=== PATIENT | male | born 1955 | race Caucasian/White ===

== ENCOUNTER 2019-09-20 23:17 | Emergency (ER) | payer OTHER, MEDICARE ==
[~2019-09-20] VITALS: Ht 185.4 cm; Wt 113.6 kg
--- NOTE | 2019-09-21 00:07 | NUR ---
Patient to xray.
[2019-09-21] MEDS ORDERED: morphine 4 MG/ML inj SYRINge IM ONE (01:05)
[2019-09-21] MEDS ORDERED: ondansetron 4mg rapidly disintigrating tab PO ONE (01:05)
[2019-09-21 01:33] VITALS: BP 126/63
== END 2019-09-21 01:20 | disposition home or self-care (01) ==
LOC: ER 23:18
DX: M25.531 Pain in right wrist (principal); M25.521 Pain in right elbow; M25.561 Pain in right knee; M54.5 Low back pain; M54.6 Pain in thoracic spine; M79.641 Pain in right hand; G43.909 Migraine, unspecified, not intractable, without status migrainosus; G89.29 Other chronic pain; E11.42 Type 2 diabetes mellitus with diabetic polyneuropathy; Z88.5 Allergy status to narcotic agent; Z88.8 Allergy status to other drugs, medicaments and biological substances; W18.39XA Other fall on same level, initial encounter; Y93.89 Activity, other specified; Y92.89 Other specified places as the place of occurrence of the external cause; Y99.8 Other external cause status
CPT/HCPCS: 71046; 73030; 73080; 73110; 73130; 73564; 96372; 99284; J2270

== ENCOUNTER 2019-09-28 16:35 | Emergency (ER) | payer MEDICARE, OTHER ==
[~2019-09-28] VITALS: Ht 185.4 cm; Wt 113.6 kg
[2019-09-28] MEDS ORDERED: proCHLORperazine 10 MG/2 ml inj IV ONE (20:20)
[2019-09-28] MEDS ORDERED: diphenhydrAMINE 50 mg/ml inj IV ONE (20:20)
== END 2019-09-28 21:16 | disposition home or self-care (01) ==
LOC: ER 16:36
DX: G43.909 Migraine, unspecified, not intractable, without status migrainosus (principal); E11.42 Type 2 diabetes mellitus with diabetic polyneuropathy; G89.29 Other chronic pain; Z88.5 Allergy status to narcotic agent; Z88.8 Allergy status to other drugs, medicaments and biological substances
CPT/HCPCS: 96372; 99284; J0780; J1200

== ENCOUNTER 2019-10-19 12:54 | Emergency (ER) | payer OTHER ==
[~2019-10-19] VITALS: Ht 185.4 cm; Wt 113.6 kg
[2019-10-19 13:40] LABS: BASOPHILS % (AUTO) 0.2 % (0-1); EOSINOPHILS % (AUTO) 0.5 % (0-6); HEMATOCRIT 31.5 % (42.0-52.0); HEMOGLOBIN 10.8 g/dl (14.0-17.9); LYMPHOCYTES # (AUTO) 0.6 X10'3 (1.1-4.8); LYMPHOCYTES % (AUTO) 15.9 % (21-51); MEAN CORPUSCULAR HEMOGLOBIN 29.4 PG (27.0-31.0); MEAN CORPUSCULAR HGB CONC 34.4 g/dL (33.0-36.5); MEAN CORPUSCULAR VOLUME 85.5 FL (78-98); MEAN PLATELET VOLUME 7.7 FL (7.4-10.4); MONOCYTES # (AUTO) 0.3 X10'3 (0-0.9); MONOCYTES % (AUTO) 6.9 % (2-12); NEUTROPHILS # (AUTO) 3.1 X10'3 (1.8-7.7); NEUTROPHILS % (AUTO) 76.5 % (42-75); PLATELET COUNT 74 X10'3 (140-440); RED BLOOD COUNT 3.69 X10'6 (4.70-6.10); RED CELL DISTRIBUTION WIDTH 15.2 % (11.5-14.5); WHITE BLOOD COUNT 4.1 X10'3 (4.5-11.0)
[2019-10-19 13:59] LABS: ALANINE AMINOTRANSFERASE 27 U/L (12-78); ALBUMIN 3.1 G/DL (3.4-5.0); ALBUMIN/GLOBULIN RATIO 0.7 (1.1-1.5); ALKALINE PHOSPHATASE 92 IU/L (46-116); ANION GAP 8 (8-16); ASPARTATE AMINO TRANSFERASE 34 U/L (10-37); BILIRUBIN,TOTAL 0.7 MG/DL (0.1-1.0); BLOOD UREA NITROGEN 9 MG/DL (7-18); BUN/CREATININE RATIO 7.7 (5.4-32.0); CALCIUM 8.4 MG/DL (8.5-10.1); CHLORIDE 105 MMOL/L (99-107); CREATININE 1.17 MG/DL (0.60-1.10); GLUCOSE 283 MG/DL (70-104); POTASSIUM 4.3 MMOL/L (3.5-5.1); SODIUM 138 MMOL/L (135-145); TOTAL PROTEIN 7.3 G/DL (6.4-8.2); eGFR 63 ML/MIN
[2019-10-19 14:01] VITALS: BP 166/109
[2019-10-19 14:14] LABS: D-DIMER 0.86 MG/L FEU (0-0.50); PARTIAL THROMBOPLASTIN TIME 29 SECONDS (22-32)
[2019-10-19] MEDS ORDERED: normal saline 1000ml 1,000 ML IV ONE (14:25)
[2019-10-19] MEDS ORDERED: iohexol 350MG/ML 100ml bottle IV ONE (14:56)
[2019-10-19] MEDS ORDERED: PRED10TA23 PO (15:16)
[2019-10-19] MEDS ORDERED: INSU100V46 SUBCUT (15:16)
[2019-10-19] MEDS ORDERED: FERR-39 PO (15:16)
[2019-10-19] MEDS ORDERED: SUMA6CAR2 SUBCUT (15:16)
[2019-10-19] MEDS ORDERED: ONDA4TAB6 PO (15:16)
[2019-10-19] MEDS ORDERED: ALBU8.5H8 INH (15:16)
[2019-10-19] MEDS ORDERED: DOXY-1 PO (15:16)
[2019-10-19] MEDS ORDERED: QUET-1 PO (15:16)
[2019-10-19] MEDS ORDERED: MESSAGE TO NURSING PO ONE (15:35)
[2019-10-19] MEDS ORDERED: ALB0.5UD IH (16:34)
[2019-10-19] MEDS ORDERED: NEBU-208 (16:34)
== END 2019-10-19 17:03 | disposition home or self-care (01) ==
LOC: ER 12:54
DX: R06.02 Shortness of breath (principal); B34.9 Viral infection, unspecified; R05 Cough; E11.42 Type 2 diabetes mellitus with diabetic polyneuropathy; G89.29 Other chronic pain; Z88.5 Allergy status to narcotic agent; Z88.8 Allergy status to other drugs, medicaments and biological substances; Z79.4 Long term (current) use of insulin; Z79.899 Other long term (current) drug therapy
CPT/HCPCS: 36415; 71045; 71275; 80053; 82140; 83605; 83880; 84145; 84484; 85025; 85379; 85610; 85730; 93005; 99285; J7030; Q9967

== ENCOUNTER 2020-02-24 13:22 | Inpatient (IN) | payer OTHER ==
[2020-02-24] VITALS (14 sets, daily range): BP systolic 116–159; BP diastolic 47–96
[~2020-02-24] VITALS: Ht 185.4 cm; Wt 105.5 kg
[~2020-02-24 13:22] MED LIST: ALBU8.5H8 INH; ASPI-1071 PO; CLOP75TA35 PO; DOXY-1 PO; FERR-39 PO; INSU100V46 SUBCUT; LACT10SO32 PO; LEVO75TA PO; MOME0.242 INH; NEBU-208; ONDA4TAB6 PO; PREG100C PO; QUET-1 PO; SUMA6CAR2 SUBCUT; TIOT18CA3 IH; TIZA4CAP PO
[2020-02-24] MEDS ORDERED: pantoprazole IV 80 MG in normal saline 100ml IV soln 100 ML IV ONE (13:55)
[2020-02-24] MEDS ORDERED: normal saline 1000ML IV soln IV ONE (13:55)
[2020-02-24] MEDS ORDERED: pantoprazole 40 MG vial IV ONE ×2 (14:00→14:10)
[2020-02-24 14:16] LABS: BASOPHILS % (AUTO) 0.2 % (0-1); EOSINOPHILS # (AUTO) 0.1 X10'3 (0-0.9); EOSINOPHILS % (AUTO) 1.7 % (0-6); LYMPHOCYTES # (AUTO) 0.6 X10'3 (1.1-4.8); LYMPHOCYTES % (AUTO) 17.7 % (21-51); MEAN CORPUSCULAR HEMOGLOBIN 30.9 PG (27.0-31.0); MEAN CORPUSCULAR HGB CONC 32.9 g/dL (33.0-36.5); MEAN PLATELET VOLUME 8.8 FL (7.4-10.4); MONOCYTES # (AUTO) 0.3 X10'3 (0-0.9); MONOCYTES % (AUTO) 10.1 % (2-12); NEUTROPHILS # (AUTO) 2.3 X10'3 (1.8-7.7); NEUTROPHILS % (AUTO) 70.3 % (42-75); PLATELET COUNT 74 X10'3 (140-440); RED BLOOD COUNT 2.04 X10'6 (4.70-6.10); RED CELL DISTRIBUTION WIDTH 18.7 % (11.5-14.5); WHITE BLOOD COUNT 3.2 X10'3 (4.5-11.0)
[2020-02-24 14:18] LABS: HEMATOCRIT 19.2 % (42.0-52.0); HEMOGLOBIN 6.3 g/dl (14.0-17.9)
[2020-02-24 14:30] LABS: ALANINE AMINOTRANSFERASE 27 U/L (12-78); ALBUMIN/GLOBULIN RATIO 0.9 (1.1-1.5); ALKALINE PHOSPHATASE 71 IU/L (46-116); ANION GAP 12 (8-16); ASPARTATE AMINO TRANSFERASE 29 U/L (10-37); BILIRUBIN,TOTAL 0.6 MG/DL (0.1-1.0); BLOOD UREA NITROGEN 15 MG/DL (7-18); BUN/CREATININE RATIO 10.6 (5.4-32.0); CALCIUM 8.3 MG/DL (8.5-10.1); CHLORIDE 104 MMOL/L (99-107); CREATININE 1.42 MG/DL (0.60-1.10); GLUCOSE 214 MG/DL (70-104); POTASSIUM 3.8 MMOL/L (3.5-5.1); SODIUM 136 MMOL/L (135-145); TOTAL CARBON DIOXIDE 20.2 MMOL/L (24-32); TOTAL PROTEIN 6.3 G/DL (6.4-8.2); eGFR 51 ML/MIN
[2020-02-24 14:50] LABS: ANISOCYTOSIS 2+; PLATELET ESTIMATE DECREASED
[2020-02-24 14:51] LABS: POLYCHROMASIA FEW
[2020-02-24] MEDS: pantoprazole 40MG/NS 100ML BAG 100 ML IV SCH ×2 (15:20→21:31)
[2020-02-24 15:57] LABS: OCCULT BLOOD STOOL POSITIVE (Neg)
--- NOTE | 2020-02-24 16:17 | NUR ---
NO REACTION NOTED Q15 MIN VITALS CHECKED NAD DOOCUMENT ,PT DENIES ANY DISCOMFORT OR DISTRESS AT THIS TIME .
[2020-02-24] MEDS ORDERED: LEVO75TA7 PO (17:01)
[2020-02-24] MEDS ORDERED: TIOT4MIS3 IH (17:01)
[2020-02-24] MEDS ORDERED: LISI2.5T2 PO (17:01)
[2020-02-24] MEDS ORDERED: LANTUS SQ (17:01)
[2020-02-24] MEDS ORDERED: ASPI-611 PO (17:01)
[2020-02-24] MEDS ORDERED: ISOS30TA6 PO (17:01)
[2020-02-24] MEDS ORDERED: CLOP75TA8 PO (17:01)
[2020-02-24] MEDS ORDERED: FERR325T28 PO (17:01)
[2020-02-24] MEDS ORDERED: SUMA5SPR2 NS (17:01)
[2020-02-24] MEDS ORDERED: INSU100C4 SQ (17:01)
[2020-02-24] MEDS ORDERED: HYDR-4383 PO (17:01)
[2020-02-24] MEDS ORDERED: METF-436 PO (17:01)
[2020-02-24] MEDS ORDERED: NITR0.4T51 SL (17:01)
[2020-02-24] MEDS ORDERED: RIFA550T PO (17:01)
[2020-02-24] MEDS ORDERED: CARV3.122 PO (17:01)
[2020-02-24] MEDS ORDERED: CETI10TA15 PO (17:01)
[2020-02-24] MEDS ORDERED: EMPA10TA PO (17:01)
[2020-02-24] MEDS ORDERED: POLY119P2 PO (17:01)
[2020-02-24] MEDS ORDERED: PANT-47 PO (17:01)
[2020-02-24] MEDS ORDERED: POTA20TA19 PO (17:01)
[2020-02-24] MEDS ORDERED: NEOM28.37 TP (17:01)
[2020-02-24] MEDS ORDERED: ATOR-2 PO (17:01)
[2020-02-24] MEDS ORDERED: acetaminophen 325mg tablet PO PRN (17:05)
[2020-02-24] MEDS ORDERED: magnesium 4gm in 100ml NS 100 ML IV PRN (17:05)
[2020-02-24] MEDS ORDERED: ondansetron/PF 4mg/2ml inj IV PRN (17:05)
[2020-02-24] MEDS ORDERED: magnesium Cl slow-release 64mg tablet PO PRN (17:05)
[2020-02-24] MEDS ORDERED: magnesium 2GM in 50ml NS 50 ML IV PRN (17:05)
[2020-02-24] MEDS ORDERED: potassium Cl 20 mEq SR tablet PO PRN ×2 (17:05)
[2020-02-24] MEDS ORDERED: potassium CL 10mEq/100ml bag 100 ML IV PRN ×2 (17:05)
[2020-02-24] MEDS ORDERED: tizanidine 4mg tablet PO PRN (18:15)
[2020-02-24] MEDS ORDERED: neomy sulf/bacitrac zn/polymixin b oint 14.2 gm tube TP PRN (18:15)
[2020-02-24] MEDS ORDERED: nitroGLYCERIN 0.4mg SUBLingual tab SL PRN (18:15)
[2020-02-24] MEDS ORDERED: polyethylene glycol 3350 17gm powd pack PO PRN (18:15)
[2020-02-24] MEDS ORDERED: albuterol 2.5 MG/3 ML nebule NEB PRN (18:40)
[2020-02-24] MEDS ORDERED: ipratropium 0.5 MG/2.5ML nebule IH PRN (18:45)
[2020-02-24 19:37] LABS: CLARITY,URINE CLEAR (Clear); COLOR,URINE YELLOW (Yellow); GLUCOSE, URINE >=1000 mg/dl (Neg); KETONES,URINE NEGATIVE (Neg); LEUKOCYTE ESTERASE ,URINE NEGATIVE (Neg); NITRITES, URINE NEGATIVE (Neg); OCCULT BLOOD,URINE NEGATIVE (Neg); PROTEIN,URINE NEGATIVE (Neg); UROBILINOGEN,URINE 0.2 E.U/dL (0.2-1.0)
[2020-02-24 19:38] LABS: UA COLLECTION TYPE NON-SPECIFIED
--- NOTE | 2020-02-24 19:40 | NUR ---
pt sitting up stated that he is feeling lot better than before ,pt working on his dinner tray .receving bld as per md orders.
[2020-02-24 19:41] LABS: RBC,URINE NONE SEEN /HPF (0-2); WBC,URINE NONE SEEN /HPF (0-4)
[2020-02-24 19:42] LABS: BACTERIA,URINE NONE SEEN /HPF (Neg); SQUAMOUS EPITHELIAL CELL,UR FEW /LPF (FEW)
--- NOTE | 2020-02-24 19:53 | NUR ---
Patient in room ED [id number]. I have received report from Terese BARON and had the opportunity to ask questions and awaiting arrival of patient to the PCU unit.
[2020-02-24] MEDS: K and/or MAG REPLACEMENT MC SCH (20:00)
[2020-02-24] MEDS ORDERED: SUMAtriptan 5 mg Nasal Spray BOTHNARES PRN (20:00)
--- NOTE | 2020-02-24 20:05 | NUR ---
Patient arrived to the floor from the ED at this time. Blood currently transfusing. No complications noted. Vitals stable. He is on room air. He is alert and oriented and able to make his needs known. He was able to ambulate from the gurney to the bed independently without issues. All safety precautions in place and call light in reach. Will continue to monitor.
[2020-02-24] MEDS: normal saline 1000ml 1,000 ML IV SCH (21:30)
[2020-02-24] MEDS: carVEDilol 3.125mg tablet PO SCH (21:31)
[2020-02-24] MEDS: rifaximin 550mg tablet PO SCH (21:31)
[2020-02-24] MEDS: insulin glargine (Lantus) pen - multi-dose SQ SCH (21:43)
[2020-02-24 22:58] LABS: HEMATOCRIT 23.9 % (42.0-52.0); MEAN CORPUSCULAR HEMOGLOBIN 30.6 PG (27.0-31.0); MEAN CORPUSCULAR HGB CONC 33.4 g/dL (33.0-36.5); MEAN CORPUSCULAR VOLUME 91.6 FL (78-98); MEAN PLATELET VOLUME 8.8 FL (7.4-10.4); PLATELET COUNT 61 X10'3 (140-440); RED BLOOD COUNT 2.61 X10'6 (4.70-6.10); RED CELL DISTRIBUTION WIDTH 18.3 % (11.5-14.5); WHITE BLOOD COUNT 3.1 X10'3 (4.5-11.0)
[2020-02-24] MEDS: budesonide 0.5mg/2ml UD nebule IH SCH (23:23)
[2020-02-25] VITALS (8 sets, daily range): BP systolic 97–121; BP diastolic 44–69
--- NOTE | 2020-02-25 02:12 | NUR ---
Hydrocodone taken off of patient allergy list because both the patient and his confirmed that he is not allergic to it and routinely takes it at home without issues.
[2020-02-25] MEDS: pantoprazole 40MG/NS 100ML BAG 100 ML IV SCH ×5 (02:18→21:00)
[2020-02-25] MEDS: HYDROcodone/acetaminophen 5mg/325mg tablet PO PRN ×2 (02:19→12:42)
[2020-02-25] MEDS: normal saline 1000ml 1,000 ML IV SCH ×3 (05:52→23:41)
[2020-02-25 05:59] LABS: ALBUMIN 2.7 G/DL (3.4-5.0); ANION GAP 8 (8-16); BLOOD UREA NITROGEN 11 MG/DL (7-18); BUN/CREATININE RATIO 10.9 (5.4-32.0); CALCIUM 7.5 MG/DL (8.5-10.1); CHLORIDE 108 MMOL/L (99-107); CREATININE 1.01 MG/DL (0.60-1.10); GLUCOSE 101 MG/DL (70-104); MAGNESIUM 1.8 MG/DL (1.5-2.4); SODIUM 139 MMOL/L (135-145); eGFR 75 ML/MIN
[2020-02-25 06:25] LABS: HEMOGLOBIN A1C 5.6 % (4.5-6.2)
--- NOTE | 2020-02-25 06:31 | NUR ---
Problems reprioritized. Patient report given, questions answered & plan of care reviewed with Tessy BARON.
[2020-02-25 07:14] LABS: BASOPHILS % (AUTO) 0.3 % (0-1); EOSINOPHILS # (AUTO) 0.1 X10'3 (0-0.9); EOSINOPHILS % (AUTO) 4.5 % (0-6); HEMATOCRIT 22.9 % (42.0-52.0); HEMOGLOBIN 7.7 g/dl (14.0-17.9); LYMPHOCYTES # (AUTO) 0.6 X10'3 (1.1-4.8); LYMPHOCYTES % (AUTO) 23.1 % (21-51); MEAN CORPUSCULAR HGB CONC 33.8 g/dL (33.0-36.5); MEAN CORPUSCULAR VOLUME 91.5 FL (78-98); MEAN PLATELET VOLUME 8.7 FL (7.4-10.4); MONOCYTES # (AUTO) 0.3 X10'3 (0-0.9); MONOCYTES % (AUTO) 11.5 % (2-12); NEUTROPHILS # (AUTO) 1.5 X10'3 (1.8-7.7); NEUTROPHILS % (AUTO) 60.6 % (42-75); PLATELET COUNT 60 X10'3 (140-440); RED CELL DISTRIBUTION WIDTH 18.5 % (11.5-14.5); WHITE BLOOD COUNT 2.5 X10'3 (4.5-11.0)
[2020-02-25] MEDS: atorvastatin 20mg tablet PO SCH (07:36)
[2020-02-25] MEDS: potassium Cl 20 mEq SR tablet PO SCH (07:39)
[2020-02-25] MEDS: levoTHYROXINE 75mcg tablet PO SCH (07:39)
[2020-02-25] MEDS: carVEDilol 3.125mg tablet PO SCH ×2 (07:39→20:34)
[2020-02-25 07:40] LABS: ANISOCYTOSIS 2+; PLATELET ESTIMATE DECREASED; TOTAL CELLS COUNTED 100
[2020-02-25] MEDS: aspirin 81mg tablet.DR PO SCH (07:40)
[2020-02-25] MEDS: isosorbide mononitrate 30mg tab.SR.24H PO SCH (07:40)
[2020-02-25] MEDS: cetirizine 10mg tablet PO SCH (07:40)
[2020-02-25 07:41] LABS: POLYCHROMASIA FEW
[2020-02-25] MEDS: rifaximin 550mg tablet PO SCH ×2 (07:42→20:33)
[2020-02-25] MEDS: lisinopril 2.5mg tablet PO SCH (07:44)
[2020-02-25] MEDS: insulin Lispro (HumaLOG) vial - multi-dose SQ SCH ×3 (07:59→17:00)
[2020-02-25] MEDS ORDERED: EMPAGLIFLOZIN 12.5 MG PO SCH (08:00)
[2020-02-25] MEDS: K and/or MAG REPLACEMENT MC SCH ×2 (08:00→20:00)
[2020-02-25] MEDS: budesonide 0.5mg/2ml UD nebule IH SCH ×2 (10:33→20:07)
[2020-02-25] MEDS ORDERED: glucagon, human recombinant 1mg kit SUBCUT PRN ×2 (12:25→20:30)
[2020-02-25] MEDS ORDERED: dextrose ORAL solution 15 GM/59 ML bottle PO PRN ×4 (12:25→20:30)
[2020-02-25] MEDS ORDERED: dextrose 50%-water 50ml dispensing syringe IV PRN ×4 (12:25→20:30)
[2020-02-25] MEDS ORDERED: fentaNYL/PF 50MCG/1 ML 2ML syringe ONE (14:53)
[2020-02-25] MEDS ORDERED: MIDAZolam 5mg/5ml vial ONE (14:53)
[2020-02-25] MEDS ORDERED: LIDOcaine Viscous 15ml cup ONE (14:53)
--- NOTE | 2020-02-25 16:08 | NUR ---
Malnutrition Consult: Pt admit w/ profound anemia, blood in stool, hx ROSALES and cirrhosis per MD note. Pt has no significant weakness noted, no edema/wounds, no accurate wt hx, and well-developed/well-nourished per EMR. At this time pt does not meet minimum malnutrition criteria. Addendum: 02/25/20 at [address] Amended: Links added.
[2020-02-25] MEDS ORDERED: fluconazole 100mg tablet PO ONE (17:15)
--- NOTE | 2020-02-25 18:00 | NUR ---
Patient in room PCU 3015. I have received report from Juan BARON and had the opportunity to ask questions and assume patient care.
[2020-02-25] MEDS ORDERED: insulin Lispro (HumaLOG) vial - multi-dose SQ SCH (20:30)
[2020-02-25] MEDS ORDERED: MESSAGE TO PHARMACY PO ONE (20:30)
[2020-02-25] MEDS: insulin glargine (Lantus) pen - multi-dose SQ SCH (20:53)
[2020-02-25] MEDS ORDERED: insulin glargine (Lantus) pen - multi-dose SQ SCH (21:00)
[2020-02-26] MEDS: pantoprazole 40MG/NS 100ML BAG 100 ML IV SCH ×2 (01:56→09:31)
[2020-02-26 02:00] VITALS: BP 138/67
[2020-02-26 06:00] VITALS: BP 130/76
[2020-02-26 06:15] LABS: BASOPHILS % (AUTO) 0.3 % (0-1); EOSINOPHILS # (AUTO) 0.1 X10'3 (0-0.9); HEMATOCRIT 23.6 % (42.0-52.0); HEMOGLOBIN 7.9 g/dl (14.0-17.9); LYMPHOCYTES # (AUTO) 0.4 X10'3 (1.1-4.8); LYMPHOCYTES % (AUTO) 9.2 % (21-51); MEAN CORPUSCULAR HEMOGLOBIN 30.7 PG (27.0-31.0); MEAN CORPUSCULAR HGB CONC 33.6 g/dL (33.0-36.5); MEAN CORPUSCULAR VOLUME 91.6 FL (78-98); MEAN PLATELET VOLUME 8.7 FL (7.4-10.4); MONOCYTES # (AUTO) 0.3 X10'3 (0-0.9); MONOCYTES % (AUTO) 8.6 % (2-12); NEUTROPHILS # (AUTO) 3.2 X10'3 (1.8-7.7); NEUTROPHILS % (AUTO) 78.9 % (42-75); PLATELET COUNT 68 X10'3 (140-440); RED BLOOD COUNT 2.57 X10'6 (4.70-6.10); RED CELL DISTRIBUTION WIDTH 18.4 % (11.5-14.5); WHITE BLOOD COUNT 4.1 X10'3 (4.5-11.0)
[2020-02-26 06:28] LABS: ALBUMIN 2.7 G/DL (3.4-5.0); ANION GAP 7 (8-16); BLOOD UREA NITROGEN 11 MG/DL (7-18); CALCIUM 8.6 MG/DL (8.5-10.1); CHLORIDE 108 MMOL/L (99-107); CREATININE 1.22 MG/DL (0.60-1.10); GLUCOSE 180 MG/DL (70-104); MAGNESIUM 1.9 MG/DL (1.5-2.4); POTASSIUM 4.3 MMOL/L (3.5-5.1); SODIUM 139 MMOL/L (135-145); TOTAL CARBON DIOXIDE 24.1 MMOL/L (24-32); eGFR 60 ML/MIN
--- NOTE | 2020-02-26 06:28 | NUR ---
Problems reprioritized. Patient report given, questions answered & plan of care reviewed with Roseline BARON.
--- NOTE | 2020-02-26 06:47 | NUR ---
Patient in room PCU 3018. I have received report from LORAINE Abernathy and had the opportunity to ask questions and assume patient care.
[2020-02-26] MEDS: budesonide 0.5mg/2ml UD nebule IH SCH (06:56)
[2020-02-26] MEDS: K and/or MAG REPLACEMENT MC SCH (07:14)
[2020-02-26] MEDS: isosorbide mononitrate 30mg tab.SR.24H PO SCH (07:21)
[2020-02-26] MEDS: aspirin 81mg tablet.DR PO SCH (07:21)
[2020-02-26] MEDS: atorvastatin 20mg tablet PO SCH (07:22)
[2020-02-26] MEDS: potassium Cl 20 mEq SR tablet PO SCH (07:22)
[2020-02-26] MEDS: lisinopril 2.5mg tablet PO SCH (07:22)
[2020-02-26] MEDS: carVEDilol 3.125mg tablet PO SCH (07:23)
[2020-02-26] MEDS: levoTHYROXINE 75mcg tablet PO SCH (07:23)
[2020-02-26] MEDS: cetirizine 10mg tablet PO SCH (07:23)
[2020-02-26] MEDS: rifaximin 550mg tablet PO SCH (07:23)
[2020-02-26] MEDS: insulin Lispro (HumaLOG) vial - multi-dose SQ SCH ×2 (07:33→12:07)
[2020-02-26] MEDS ORDERED: EMPAGLIFLOZIN 25 MG PO SCH (08:00)
[2020-02-26] MEDS ORDERED: ferrous sulfate 325mg tablet PO SCH (08:00)
[2020-02-26] MEDS: normal saline 1000ml 1,000 ML IV SCH (09:31)
[2020-02-26 11:00] VITALS: BP 133/74
[2020-02-26] MEDS: HYDROcodone/acetaminophen 5mg/325mg tablet PO PRN (12:00)
--- NOTE | 2020-02-26 16:24 | NUR ---
Pt stable for discharge to home. Provided discharge education and instructions. Answered any questions or concerns pt may have. Tele monitor removed. PIV removed. Belongings sent with pt. Pt wheeled downstairs to lobby by aide into a private vehicle.
[2020-02-26] MEDS ORDERED: fluconazole 100mg tablet PO SCH (17:15)
== END 2020-02-26 16:24 | disposition home or self-care (01) | DRG 377 ==
LOC: ER 13:22 → ED HOLD 17:05 → PCU 3S 20:02
PROVIDERS: ADMIT Internal Medicine; ATTEND Internal Medicine
PROC: 30233N1 Transfusion of Nonautologous Red Blood Cells into Peripheral Vein, Percutaneous Approach (ICD-10-PCS; 2020-02-24)
PROC: 0W3P8ZZ Control Bleeding in Gastrointestinal Tract, Via Natural or Artificial Opening Endoscopic (ICD-10-PCS; principal; 2020-02-25)
DX: K31.811 Angiodysplasia of stomach and duodenum with bleeding (principal); N17.0 Acute kidney failure with tubular necrosis; B37.81 Candidal esophagitis; N18.3 Chronic kidney disease, stage 3 (moderate); F17.210 Nicotine dependence, cigarettes, uncomplicated; K74.60 Unspecified cirrhosis of liver; K75.81 Nonalcoholic steatohepatitis (NASH); M79.7 Fibromyalgia; E11.51 Type 2 diabetes mellitus with diabetic peripheral angiopathy without gangrene; E11.22 Type 2 diabetes mellitus with diabetic chronic kidney disease; I85.00 Esophageal varices without bleeding; E11.42 Type 2 diabetes mellitus with diabetic polyneuropathy; D50.0 Iron deficiency anemia secondary to blood loss (chronic); E78.5 Hyperlipidemia, unspecified; E03.9 Hypothyroidism, unspecified; I85.10 Secondary esophageal varices without bleeding; I12.9 Hypertensive chronic kidney disease with stage 1 through stage 4 chronic kidney disease, or unspecified chronic kidney disease; J30.9 Allergic rhinitis, unspecified; I25.10 Atherosclerotic heart disease of native coronary artery without angina pectoris; D69.59 Other secondary thrombocytopenia; G43.909 Migraine, unspecified, not intractable, without status migrainosus; G89.29 Other chronic pain; I95.89 Other hypotension; K72.90 Hepatic failure, unspecified without coma; M54.9 Dorsalgia, unspecified; R29.6 Repeated falls; I25.2 Old myocardial infarction; Z79.4 Long term (current) use of insulin; Z88.8 Allergy status to other drugs, medicaments and biological substances; Z79.899 Other long term (current) drug therapy
CPT/HCPCS: 36415; 36430; 43227; 71045; 74176; 80048; 80053; 81001; 82140; 82272; 82948; 83036; 83735; 85025; 85027; 85610; 86885; 86900; 86901; 86920; 87081; 93005; 94640; 94760; 99152; 99153; 99291; A4620; C9113; G0378; J1815; J2250; J3010; J7030; J7040; J7626; P9016

== ENCOUNTER 2020-04-15 14:27 | Emergency (ER) | payer OTHER ==
[~2020-04-15] VITALS: Ht 185.4 cm; Wt 106.4 kg
[~2020-04-15 14:27] MED LIST changes: -ASPI-1071 PO; +ATOR-2 PO; +CARV3.122 PO; +CETI10TA15 PO; -CLOP75TA35 PO; -DOXY-1 PO; +EMPA10TA PO; -FERR-39 PO; +FERR325T28 PO; +HYDR-4383 PO; +INSU100C4 SQ; -INSU100V46 SUBCUT; +ISOS30TA6 PO; -LACT10SO32 PO; +LANTUS SQ; -LEVO75TA PO; +LEVO75TA7 PO; +LISI2.5T2 PO; +METF-436 PO; -NEBU-208; +NEOM28.37 TP; +NITR0.4T51 SL; -ONDA4TAB6 PO; +PANT-47 PO; +POLY119P2 PO; +POTA20TA19 PO; -PREG100C PO; -QUET-1 PO; +RIFA550T PO; +SUMA5SPR2 NS; -SUMA6CAR2 SUBCUT; -TIOT18CA3 IH; +TIOT4MIS3 IH
[2020-04-15 15:03] LABS: BASOPHILS % (AUTO) 0.4 % (0-1); EOSINOPHILS # (AUTO) 0.1 X10'3 (0-0.9); EOSINOPHILS % (AUTO) 3.4 % (0-6); HEMATOCRIT 29.3 % (42.0-52.0); HEMOGLOBIN 9.6 g/dl (14.0-17.9); LYMPHOCYTES # (AUTO) 0.8 X10'3 (1.1-4.8); LYMPHOCYTES % (AUTO) 22.4 % (21-51); MEAN CORPUSCULAR HEMOGLOBIN 27.4 PG (27.0-31.0); MEAN CORPUSCULAR HGB CONC 32.9 g/dL (33.0-36.5); MEAN CORPUSCULAR VOLUME 83.3 FL (78-98); MEAN PLATELET VOLUME 7.7 FL (7.4-10.4); MONOCYTES # (AUTO) 0.3 X10'3 (0-0.9); MONOCYTES % (AUTO) 9.3 % (2-12); NEUTROPHILS # (AUTO) 2.3 X10'3 (1.8-7.7); NEUTROPHILS % (AUTO) 64.5 % (42-75); PLATELET COUNT 89 X10'3 (140-440); RED BLOOD COUNT 3.52 X10'6 (4.70-6.10); RED CELL DISTRIBUTION WIDTH 16.8 % (11.5-14.5); WHITE BLOOD COUNT 3.6 X10'3 (4.5-11.0)
[2020-04-15 15:18] LABS: ALANINE AMINOTRANSFERASE 28 U/L (12-78); ALBUMIN 3.4 G/DL (3.4-5.0); ALBUMIN/GLOBULIN RATIO 0.9 (1.1-1.5); ALKALINE PHOSPHATASE 103 IU/L (46-116); ANION GAP 9 (8-16); ASPARTATE AMINO TRANSFERASE 36 U/L (10-37); BILIRUBIN,TOTAL 0.5 MG/DL (0.1-1.0); BLOOD UREA NITROGEN 9 MG/DL (7-18); BUN/CREATININE RATIO 5.6 (5.4-32.0); CALCIUM 8.8 MG/DL (8.5-10.1); CHLORIDE 103 MMOL/L (99-107); CREATININE 1.62 MG/DL (0.60-1.10); GLUCOSE 132 MG/DL (70-104); POTASSIUM 3.5 MMOL/L (3.5-5.1); SODIUM 137 MMOL/L (135-145); TOTAL CARBON DIOXIDE 25.1 MMOL/L (24-32); TOTAL PROTEIN 7.3 G/DL (6.4-8.2); eGFR 43 ML/MIN
[2020-04-15 18:24] VITALS: BP 161/87
== END 2020-04-15 18:25 | disposition home or self-care (01) ==
LOC: ER 14:28
DX: D64.9 Anemia, unspecified (principal); G43.909 Migraine, unspecified, not intractable, without status migrainosus; E11.42 Type 2 diabetes mellitus with diabetic polyneuropathy; G89.29 Other chronic pain; F17.200 Nicotine dependence, unspecified, uncomplicated; F12.90 Cannabis use, unspecified, uncomplicated; Z98.61 Coronary angioplasty status; Z72.89 Other problems related to lifestyle; Z88.8 Allergy status to other drugs, medicaments and biological substances; Z79.4 Long term (current) use of insulin; Z79.01 Long term (current) use of anticoagulants; Z79.899 Other long term (current) drug therapy
CPT/HCPCS: 36415; 71045; 80053; 82140; 84484; 85025; 93005; 99285

== ENCOUNTER 2020-09-01 14:15 | Emergency (ER) | payer OTHER ==
[~2020-09-01] VITALS: Ht 185.4 cm; Wt 111.0 kg
--- NOTE | 2020-09-01 14:41 | NUR ---
pt to xray
--- NOTE | 2020-09-01 15:07 | NUR ---
PT TOOK A COULE OF BITER OF SANDWICH AT 1200, ATE 1 WHOLD BANANA AT 1300 WITH A FEW SIPS OF COFFE.
--- NOTE | 2020-09-01 15:12 | NUR ---
PT TO CT VIA CLAIRE WITH FORENSIC PSYCHOLOGIST
[2020-09-01 15:29] LABS: BASOPHILS % (AUTO) 0.3 % (0-1); EOSINOPHILS # (AUTO) 0.1 X10'3 (0-0.9); EOSINOPHILS % (AUTO) 1.7 % (0-6); HEMATOCRIT 38.7 % (42.0-52.0); HEMOGLOBIN 13.2 g/dl (14.0-17.9); LYMPHOCYTES # (AUTO) 0.6 X10'3 (1.1-4.8); LYMPHOCYTES % (AUTO) 14.3 % (21-51); MEAN CORPUSCULAR HEMOGLOBIN 33.5 PG (27.0-31.0); MEAN CORPUSCULAR HGB CONC 34.2 g/dL (33.0-36.5); MEAN CORPUSCULAR VOLUME 98.2 FL (78-98); MEAN PLATELET VOLUME 8.6 FL (7.4-10.4); MONOCYTES # (AUTO) 0.3 X10'3 (0-0.9); MONOCYTES % (AUTO) 7.2 % (2-12); NEUTROPHILS # (AUTO) 3.1 X10'3 (1.8-7.7); NEUTROPHILS % (AUTO) 76.5 % (42-75); RED BLOOD COUNT 3.95 X10'6 (4.70-6.10)
[2020-09-01 15:36] LABS: PLATELET COUNT 50 X10'3 (140-440)
[2020-09-01 15:45] LABS: ALANINE AMINOTRANSFERASE 33 U/L (12-78); ALBUMIN 3.7 G/DL (3.4-5.0); ALBUMIN/GLOBULIN RATIO 0.9 (1.1-1.5); ALKALINE PHOSPHATASE 106 IU/L (46-116); ANION GAP 13 (8-16); ASPARTATE AMINO TRANSFERASE 34 U/L (10-37); BILIRUBIN,TOTAL 0.7 MG/DL (0.1-1.0); BLOOD UREA NITROGEN 15 MG/DL (7-18); BUN/CREATININE RATIO 9.2 (5.4-32.0); CHLORIDE 103 MMOL/L (99-107); CREATININE 1.63 MG/DL (0.60-1.10); GLUCOSE 217 MG/DL (70-104); POTASSIUM 3.8 MMOL/L (3.5-5.1); SODIUM 139 MMOL/L (135-145); TOTAL CARBON DIOXIDE 23.4 MMOL/L (24-32); TOTAL PROTEIN 7.8 G/DL (6.4-8.2); eGFR 43 ML/MIN
[2020-09-01 15:48] LABS: CALCIUM 8.9 MG/DL (8.5-10.1)
[2020-09-01 15:50] LABS: LACTIC SEPSIS 4.2 MMOL/L (0.4-2.0)
[2020-09-01] MEDS ORDERED: normal saline 1000ml 1,000 ML IV ONE (15:55)
[2020-09-01] MEDS ORDERED: glycerin ADULT rectal suppository RC ONE (16:10)
[2020-09-01] MEDS ORDERED: magnesium citrate 296ml oral solution PO ONE (16:10)
[2020-09-01] MEDS ORDERED: POLY119P2 PO (18:00)
[2020-09-01] MEDS ORDERED: BISA-78 PO (18:00)
[2020-09-01 18:15] VITALS: BP 149/82
[2020-09-01 18:16] LABS: OCCULT BLOOD STOOL NEGATIVE (Neg)
== END 2020-09-01 18:25 | disposition home or self-care (01) ==
LOC: ER 14:16
DX: K59.00 Constipation, unspecified (principal); E87.2 Acidosis; R10.84 Generalized abdominal pain; R63.0 Anorexia; G43.909 Migraine, unspecified, not intractable, without status migrainosus; E11.42 Type 2 diabetes mellitus with diabetic polyneuropathy; G89.29 Other chronic pain; F12.90 Cannabis use, unspecified, uncomplicated; Z98.890 Other specified postprocedural states; Z72.89 Other problems related to lifestyle; Z88.8 Allergy status to other drugs, medicaments and biological substances; Z79.4 Long term (current) use of insulin; Z79.899 Other long term (current) drug therapy
CPT/HCPCS: 36415; 74018; 74176; 80053; 82140; 82272; 83605; 85025; 96360; 99285; J7030

== ENCOUNTER 2020-11-02 00:46 | Emergency (ER) | payer OTHER ==
[~2020-11-02] VITALS: Ht 185.4 cm; Wt 111.4 kg
[~2020-11-02 00:46] MED LIST changes: +BISA-78 PO; -ISOS30TA6 PO; +ISOS30TA84 PO
[2020-11-02] MEDS ORDERED: bisacodyl 10mg suppository rectal RC STA (01:15)
[2020-11-02] MEDS ORDERED: bisacodyl 5mg tablet.DR PO ONE (01:15)
[2020-11-02 01:29] LABS: ALANINE AMINOTRANSFERASE 32 U/L (12-78); ALBUMIN 3.9 G/DL (3.4-5.0); ALBUMIN/GLOBULIN RATIO 0.9 (1.1-1.5); ALKALINE PHOSPHATASE 79 IU/L (46-116); ANION GAP 13 (8-16); ASPARTATE AMINO TRANSFERASE 37 U/L (10-37); BILIRUBIN,TOTAL 1.1 MG/DL (0.1-1.0); BLOOD UREA NITROGEN 16 MG/DL (7-18); BUN/CREATININE RATIO 10.4 (5.4-32.0); CALCIUM 9.5 MG/DL (8.5-10.1); CHLORIDE 102 MMOL/L (99-107); CREATININE 1.54 MG/DL (0.60-1.10); GLUCOSE 238 MG/DL (70-104); LIPASE 342 U/L (73-393); POTASSIUM 4.3 MMOL/L (3.5-5.1); SODIUM 142 MMOL/L (135-145); TOTAL CARBON DIOXIDE 26.6 MMOL/L (24-32); TOTAL PROTEIN 8.2 G/DL (6.4-8.2); eGFR 46 ML/MIN
[2020-11-02 01:32] LABS: BASOPHILS % (AUTO) 0.3 % (0-1); EOSINOPHILS # (AUTO) 0.2 X10'3 (0-0.9); EOSINOPHILS % (AUTO) 2.4 % (0-6); LYMPHOCYTES # (AUTO) 1.3 X10'3 (1.1-4.8); LYMPHOCYTES % (AUTO) 18.3 % (21-51); MEAN CORPUSCULAR HEMOGLOBIN 31.5 PG (27.0-31.0); MEAN CORPUSCULAR HGB CONC 33.2 g/dL (33.0-36.5); MEAN CORPUSCULAR VOLUME 94.8 FL (78-98); MEAN PLATELET VOLUME 8.2 FL (7.4-10.4); MONOCYTES # (AUTO) 0.7 X10'3 (0-0.9); NEUTROPHILS # (AUTO) 5.1 X10'3 (1.8-7.7); PLATELET COUNT 99 X10'3 (140-440); RED BLOOD COUNT 4.43 X10'6 (4.70-6.10); RED CELL DISTRIBUTION WIDTH 16.1 % (11.5-14.5); WHITE BLOOD COUNT 7.3 X10'3 (4.5-11.0)
[2020-11-02] MEDS ORDERED: magnesium citrate 296ml oral solution PO ONE (02:05)
[2020-11-02] MEDS ORDERED: BISA-78 PO (03:05)
--- NOTE | 2020-11-02 03:06 | NUR ---
PT ABLE TO TOLERATE APPROX 400 ML OF SOAP SUDS ENEMA. HAD SIGNIFICANT BM AFTER. AWARE
[2020-11-02 03:39] VITALS: BP 125/75
== END 2020-11-02 03:46 | disposition home or self-care (01) ==
LOC: ER 00:47
DX: K59.00 Constipation, unspecified (principal); R10.30 Lower abdominal pain, unspecified; R11.0 Nausea; G43.909 Migraine, unspecified, not intractable, without status migrainosus; E11.42 Type 2 diabetes mellitus with diabetic polyneuropathy; G89.29 Other chronic pain; F12.90 Cannabis use, unspecified, uncomplicated; Z72.89 Other problems related to lifestyle; Z98.890 Other specified postprocedural states; Z88.8 Allergy status to other drugs, medicaments and biological substances; Z79.4 Long term (current) use of insulin; Z79.899 Other long term (current) drug therapy
CPT/HCPCS: 36415; 74176; 80053; 83690; 85025; 99284